=== PATIENT | female | born 2005 | race Hispanic/Latino ===

== ENCOUNTER 2024-05-12 06:43 | Emergency (ER) | payer SELFPAY ==
[2024-05-12 07:00] VITALS: BP 123/60; PULSE 109; RESP 16; TEMP 36.9; O2SAT 95
[2024-05-12 07:01] VITALS: O2SAT 100
[2024-05-12 07:52] LABS: Influenza A QL RT-PCR Positive (Negative); Influenza B QL RT-PCR Negative (Negative); RSV RNA, RT-PCR Negative (Negative); SARS-CoV-2 RNA PCR Negative (Negative)
[2024-05-12 08:02] VITALS: BP 112/76; PULSE 102; RESP 20; TEMP 36.6; O2SAT 99
--- NOTE | 2024-05-12 08:05 | ED.URI ---
HPI - URI/Sore Throat General Chief Complaint: Upper Respiratory Infection Stated Complaint: fever, vomiting since sunday Time Seen by Provider: 05/12/24 07:10 Source: patient Mode of arrival: ambulatory Limitations: language barrier History of Present Illness HPI Narrative: 18-year-old [place]ian-speaking was brought in by family with the complaints of cough, fever, headache for last 2 days. She also states that she has occasional nausea. Most of the history was obtained through the patient accounts clerk. MD elicited complaint: fever and cough Onset (ago): day(s) (2) Consistency: constant Severity: mild Exacerbating factors: nothing Relieving factors: nothing Associated symptoms: denies other symptoms Related Data Allergies Allergy/AdvReac Type Severity Reaction Status Date / Time No Known Allergies Allergy Verified 05/12/24 07:01 Review of Systems Review of Systems: All systems reviewed & are unremarkable except as noted in HPI and below Constitutional: Constitutional: Reports no additional constitutional complaints Eyes: Eyes: Reports no additional eye complaints ENT: Reports system reviewed and no additional complaints, except as documented Cardiovascular: Cardiovascular: Reports no additional cardiovascular complaints Respiratory: Respiratory: Reports as per HPI Gastrointestinal: Gastrointestinal: Reports as per HPI Neurologic: Reports system reviewed and no additional complaints, except as documented Exam Narrative: GENERAL: Well-appearing, well-nourished, and in no acute distress. HEAD: Normocephalic, atraumatic. EYES: PERRLA and EOMI.. NECK: Supple. CHEST: Clear to auscultation. No respiratory distress. HEART: Regular rate and rhythm. No murmur heard. Normal peripheral pulses. ABDOMEN: Soft, nontender, nondistended, normal active bowel sounds. EXTREMITIES: Normal range of motion. No edema. SKIN: Warm, dry, no rash. NEURO: No focal deficits. Alert and oriented x3. PSYCH: Normal mood and affect. Course Course Emergency Course: Notified patient about the lab work. Advised her to take Tamiflu as prescribed. Plenty of fluids, rest, Tylenol ibuprofen for body aches and headache Vital Signs Vital signs: Vital Signs Temperature 36.9 C 05/12/24 07:00 Pulse Rate 109 H 05/12/24 07:00 Respiratory Rate 16 05/12/24 07:00 Blood Pressure 123/60 05/12/24 07:00 Pulse Oximetry 95 05/12/24 07:00 Temperature 36.6 C 05/12/24 08:02 Pulse Rate 102 H 05/12/24 08:02 Respiratory Rate 20 05/12/24 08:02 Blood Pressure 112/76 05/12/24 08:02 Pulse Oximetry 99 05/12/24 08:02 Oxygen Delivery Room Air 05/12/24 07:01 MDM - URI/Sore Throat Lab Data Labs: Lab Results 05/12/24 Range/Units 07:04 Influenza A (RT-PCR) Positive A (Negative) Influenza B (RT-PCR) Negative (Negative) RSV (RT-PCR) Negative (Negative) SARS-CoV-2 RNA (RT-PCR) Negative (Negative) Discharge Plan Discharge Clinical Impression: Influenza Patient Disposition: Home, Self-Care Condition: Stable Instructions: Influenza (ED) Patient Language: Romanian Prescriptions: New oseltamivir [Tamiflu] 75 mg capsule 75 mg PO Q12H 5 Days Qty: 10 0RF Follow-up/Referrals: UNKNOWN,DOCTOR [Primary Care Provider] - Juan F Marroquin MD [Physician] - Time of Disposition: 08:10
== END 2024-05-12 08:18 | disposition home or self-care (01) ==
PROVIDERS: Emergency Medicine; Emergency Provider Family Medicine
DX: J11.1 Influenza due to unidentified influenza virus with other respiratory manifestations (principal); Z20.822 Contact with and (suspected) exposure to COVID-19
CPT/HCPCS: 87637; 99283